=== PATIENT | male | born 1940 | race Caucasian/White ===

== ENCOUNTER 2016-10-20 08:15 | Emergency (ER) | payer OTHER ==
[~2016-10-20] VITALS: Ht 177.8 cm; Wt 71.0 kg
[2016-10-20 08:19] VITALS: BP 148/82
[2016-10-20] MEDS ORDERED: BUDE10.2 IH (08:47)
[2016-10-20] MEDS ORDERED: ASPI-515 PO (08:47)
[2016-10-20] MEDS ORDERED: SIMV40TA3 PO (08:47)
[2016-10-20] MEDS ORDERED: LOSA1TAB17 PO (08:47)
[2016-10-20] MEDS ORDERED: ALBU2.5V NEB (08:47)
[2016-10-20] MEDS ORDERED: OMEP-110 PO (08:47)
== END 2016-10-20 10:24 | disposition home or self-care (01) ==
LOC: ED 09:48
DX: S42.034A Nondisplaced fracture of lateral end of right clavicle, initial encounter for closed fracture (principal); E78.5 Hyperlipidemia, unspecified; Z87.891 Personal history of nicotine dependence; W10.8XXA Fall (on) (from) other stairs and steps, initial encounter; Y93.89 Activity, other specified; Y92.89 Other specified places as the place of occurrence of the external cause; Y99.8 Other external cause status
CPT/HCPCS: 71010; 99284

== ENCOUNTER 2018-04-09 08:24 | Inpatient (IN) | payer MEDICARE, OTHER ==
[~2018-04-09] VITALS: Ht 177.8 cm; Wt 74.0 kg
[~2018-04-09 08:24] MED LIST: ALBU2.5V NEB; ASPI-515 PO; BUDE10.2 IH; LOSA1TAB22 PO; OMEP-110 PO; SIMV40TA3 PO
--- NOTE | 2018-04-09 08:46 | NUR ---
77 Y/O MALE BIB AMBULANCE WITH C/O DYSPNEA. PER PT "I THINK MY CONCENTRATOR WASN'T WORKING LAST NIGHT. MY SATURATION WAS LOW 69%. I PUT MYSELF ON MY REGULAR OXYGEN TANK AT 4 LPM. THEN IT WENT UP TO 91%. I HAD SOME LOWER RIGHT BACK PAIN WHEN THEY GOT TO MY HOUSE, BUT IT'S NOT THERE ANYMORE. I'VE HAD A COUGH FOR 2 DAYS. SINCE THEN I REALLY HAVEN'T HAD AN APPETITE." PER EMS PT WAS GIVEN 1 DUO NEB AND 1 ALBUTEROL TX. 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 NO C/O N/V/D, TRAUMA, SYNCOPE, CP
[2018-04-09] MEDS ORDERED: HYDREA (08:55)
[2018-04-09] MEDS ORDERED: AMLODIPINE (08:55)
--- NOTE | 2018-04-09 09:06 | NUR ---
PT EDUCATED REGARDING URINAL AND NEEDING A UA SAMPLE. PT VERBALIZED UNDERSTANDING. URINAL BEDSIDE.
[2018-04-09 09:18] LABS: ALBUMIN 3.8 g/dL (3.4-5.0); ANION GAP 12 mmol/L (5-15); CALCIUM 8.7 mg/dL (8.5-10.1); CHLORIDE 105 mmol/L (98-107)
[2018-04-09 09:24] LABS: ALANINE AMINOTRANSFERASE 19 U/L (12-78); ALKALINE PHOSPHATASE 107 U/L (45-117); BILIRUBIN,TOTAL 0.6 mg/dL (0.2-1.0); CREATININE 1.32 mg/dL (0.7-1.3); TOTAL PROTEIN 7.5 g/dL (6.4-8.2); TROPONIN I < 0.015 ng/mL (0.000-0.045)
[2018-04-09 09:26] LABS: MEAN CORPUSCULAR HEMOGLOBIN 20.9 pg (27.5-34.5); MEAN CORPUSCULAR VOLUME 70.8 fL (81-97); MEAN PLATELET VOLUME 8.5 fL (7.4-10.4); PLATELET COUNT 846 x10^3/uL (130-400); RED BLOOD COUNT 5.79 x10^6/uL (4.38-5.82); RED CELL DISTRIBUTION WIDTH 18.5 % (9.4-14.8)
[2018-04-09 09:26] LABS: RAPID INFLUENZA A Negative (Negative); RAPID INFLUENZA B Negative (Negative)
[2018-04-09 09:27] LABS: MD YES; MEAN CORPUSCULAR HGB CONC 29.5 g/dL (33.2-36.2)
[2018-04-09 09:28] LABS: BASOS#(MANUAL) 0.15 x10^3/uL (0-0.1); BASOS% (MANUAL) 1 % (0-1); LYMPH#(MANUAL) 1.22 x10^3/uL (1-3.4); LYMPHS% (MANUAL) 8 % (22-44)
[2018-04-09 09:29] LABS: <PLATELET ESTIMATE> INCREASED; <PLT MORPHOLOGY> NORMAL PLT MORPH; MONOS#(MANUAL) 1.37 x10^3/uL (0.3-2.7); MONOS% (MANUAL) 9 % (2-9); SEG#(MANUAL) 12.46 x10^3/uL (1.8-6.8); SEGS% (MANUAL) 82 % (42-75)
[2018-04-09 09:30] LABS: ANISOCYTOSIS 1+; HYPOCHROMIA 1+; MICROCYTOSIS 1+
[2018-04-09] MEDS ORDERED: ALBUTEROL/IPRATROPIUM 2.5MG/0.5MG, 3 ML NPPB ONE (09:30)
--- NOTE | 2018-04-09 09:30 | NUR ---
PT RESTING ON GURNEY. PT STATES "I'M SO TIRED. THAT STUFF WEARS YOU OUT." NO ACUTE DISTRESS NOTED. MEDICATION ADMINISTERED PER EMAR. NO NEEDS REQUESTED AT THIS TIME.
[2018-04-09 09:31] LABS: OVALOCYTES 1+
[2018-04-09] MEDS ORDERED: ALBUTEROL/IPRATROPIUM 2.5MG/0.5MG, 3 ML ONE ×2 (09:32→14:28)
[2018-04-09] MEDS ORDERED: SODIUM CHLORIDE 0.9% 1,000ML IVBOLUS ONE ×2 (10:00→11:00)
[2018-04-09 10:13] LABS: MICROSCOPIC AUTO
[2018-04-09 10:16] LABS: CULTURE INDICATED? NO
--- NOTE | 2018-04-09 10:26 | NUR ---
PT RESTING ON GURNEY. NO ACUTE DISTRESS NOTED. PT STATES "I JUST DON'T FEEL GOOD." NO NEEDS REQUESTED AT THIS TIME. UA SENT TO LAB.
[2018-04-09] MEDS ORDERED: CEFTRIAXONE PMX 1GM/50ML 50 ML ONE (10:42)
--- NOTE | 2018-04-09 10:47 | NUR ---
PT BEING TRANSFERRED TO IMAGING
[2018-04-09] MEDS ORDERED: AZITHROMYCIN 500 MG in SODIUM CHLORIDE 0.9% 250 ML IV ONE (11:00)
[2018-04-09] MEDS ORDERED: CEFTRIAXONE PMX 1GM/50ML 50 ML IV ONE (11:00)
--- NOTE | 2018-04-09 11:03 | NUR ---
PT BACK FROM IMAGING.
--- NOTE | 2018-04-09 12:24 | NUR ---
PT RESTING ON GURNEY. PT VERBALIZES UNDERSTANDING REGARDING POC. NO ACUTE DISTRESS NOTED. NO NEEDS REQUESTED AT THIS TIME.
[2018-04-09] MEDS ORDERED: ONDANSETRON ODT 4 MG PO PRN (13:00)
[2018-04-09] MEDS ORDERED: LABETALOL 5MG/ML, 20ML IVPush PRN (13:00)
[2018-04-09] MEDS ORDERED: ONDANSETRON 2MG/ML, 2ML IVPush PRN (13:00)
[2018-04-09] MEDS: CEFTRIAXONE PMX 1GM/50ML 50 ML IV SCH (13:00)
[2018-04-09] MEDS ORDERED: POLYETHYLENE GLYCOL 17 GM PACKET PO PRN (13:00)
[2018-04-09 13:26] LABS: FREE T4 (FREE THYROXINE) 1.05 ng/dL (0.76-1.46)
--- NOTE | 2018-04-09 14:11 | NUR ---
PATIENT PROVIDED ICE WATER TO DRINK. VITALS UPDATED AND WNL. PT RESTING WITH NO COMPLAINTS. SIDE RAILS UP X2 AND CALL BUTTON WITHIN REACH.
[2018-04-09] MEDS: ALBUTEROL/IPRATROPIUM 2.5MG/0.5MG, 3 ML NPPB SCH ×2 (15:10→20:00)
--- NOTE | 2018-04-09 15:14 | NUR ---
PT RESTING ON GURNEY. PT GIVEN WATER. RT BEDSIDE. NO ACUTE DISTRESS NOTED. NO NEEDS REQUESTED AT THIS TIME.
--- NOTE | 2018-04-09 16:09 | NUR ---
REPORT TO YESICA JULIO. ALL QUESTIONS ANSWERED.
--- NOTE | 2018-04-09 16:37 | NUR ---
PT TRANSFERRED TO FLOOR. PT LEFT WITH ALL PERSONAL BELONGINGS.
[2018-04-09] MEDS: methylPREDNISolone SOD SUCC 125 MG/2 ML IVPush SCH ×2 (17:24→23:20)
[2018-04-09 17:37] VITALS: BP 113/54
[2018-04-09 19:34] VITALS: BP 110/61
[2018-04-09] MEDS: BUDESONIDE 0.5 MG/2 ML INHA INH SCH (21:00)
[2018-04-09] MEDS: DOXYCYCLINE 100MG TABLET PO SCH (21:09)
[2018-04-09] MEDS: FAMOTIDINE 20 MG/2 ML IVPush SCH (21:09)
[2018-04-10 00:19] LABS: CLOSTRIDIUM DIFFICILE ANTIGEN NEGATIVE; CLOSTRIDIUM DIFFICILE TOXIN NEGATIVE (Negative)
[2018-04-10 02:44] VITALS: BP 130/65
[2018-04-10] MEDS: methylPREDNISolone SOD SUCC 125 MG/2 ML IVPush SCH ×4 (05:24→23:22)
[2018-04-10 05:25] LABS: ALBUMIN 3.2 g/dL (3.4-5.0); ANION GAP 8 mmol/L (5-15); CALCIUM 7.8 mg/dL (8.5-10.1); CHLORIDE 109 mmol/L (98-107)
[2018-04-10 05:38] LABS: ALANINE AMINOTRANSFERASE 16 U/L (12-78); ALKALINE PHOSPHATASE 82 U/L (45-117); BILIRUBIN,TOTAL 0.3 mg/dL (0.2-1.0); CREATININE 1.08 mg/dL (0.7-1.3); THYROID STIMULATING HORMONE 0.444 mIU/L (0.358-3.740); TOTAL PROTEIN 6.2 g/dL (6.4-8.2)
[2018-04-10 05:39] LABS: MEAN CORPUSCULAR HEMOGLOBIN 20.8 pg (27.5-34.5); MEAN CORPUSCULAR VOLUME 70.5 fL (81-97); MEAN PLATELET VOLUME 8.8 fL (7.4-10.4); PLATELET COUNT 808 x10^3/uL (130-400); RED BLOOD COUNT 4.74 x10^6/uL (4.38-5.82); RED CELL DISTRIBUTION WIDTH 19.3 % (9.4-14.8)
[2018-04-10 06:11] LABS: MEAN CORPUSCULAR HGB CONC 29.5 g/dL (33.2-36.2)
[2018-04-10 06:24] LABS: BASOPHILS # (AUTO) 0.01 x10^3/uL (0-0.1); BASOPHILS % (AUTO) 0 % (0-1); EOSINOPHILS % (AUTO) 0 % (1-7); LYMPHOCYTES # (AUTO) 0.55 x10^3/uL (1-3.4); LYMPHOCYTES % (AUTO) 5 % (22-44); MD SCAN; MONOCYTES # (AUTO) 0.16 x10^3/uL (0.2-0.8); MONOCYTES % (AUTO) 2 % (2-9); NEUTROPHILS # (AUTO) 10.33 x10^3/uL (1.8-6.8); NEUTROPHILS % (AUTO) 94 % (42-75)
[2018-04-10] MEDS: ALBUTEROL/IPRATROPIUM 2.5MG/0.5MG, 3 ML NPPB SCH ×4 (07:00→20:20)
[2018-04-10 07:25] VITALS: BP 112/77
[2018-04-10] MEDS: BUDESONIDE 0.5 MG/2 ML INHA INH SCH ×2 (09:00→20:20)
[2018-04-10] MEDS: IRON SUCROSE COMPLEX 100MG/5ML IV SCH (09:22)
[2018-04-10] MEDS: SENNA/DOCUSATE TABLET PO SCH (09:22)
[2018-04-10] MEDS: DOXYCYCLINE 100MG TABLET PO SCH ×2 (09:22→21:01)
[2018-04-10] MEDS: FAMOTIDINE 20 MG/2 ML IVPush SCH ×2 (09:22→21:01)
[2018-04-10] MEDS: CEFTRIAXONE PMX 1GM/50ML 50 ML IV SCH (12:44)
[2018-04-10 13:42] VITALS: BP 124/66
[2018-04-10 18:28] VITALS: BP 135/62
[2018-04-11 00:55] VITALS: BP 124/63
[2018-04-11] MEDS: PSEUDOEPHEDRINE 30 MG TABLET PO PRN (04:49)
[2018-04-11] MEDS: methylPREDNISolone SOD SUCC 125 MG/2 ML IVPush SCH (04:54)
[2018-04-11 06:20] LABS: MEAN CORPUSCULAR HEMOGLOBIN 21.4 pg (27.5-34.5); MEAN CORPUSCULAR HGB CONC 30.4 g/dL (33.2-36.2); MEAN CORPUSCULAR VOLUME 70.3 fL (81-97); MEAN PLATELET VOLUME 9.1 fL (7.4-10.4); PLATELET COUNT 947 x10^3/uL (130-400); RED BLOOD COUNT 5.15 x10^6/uL (4.38-5.82); RED CELL DISTRIBUTION WIDTH 19.1 % (9.4-14.8)
[2018-04-11 06:28] LABS: ALANINE AMINOTRANSFERASE 20 U/L (12-78); ALBUMIN 3.6 g/dL (3.4-5.0); ANION GAP 9 mmol/L (5-15); CHLORIDE 110 mmol/L (98-107)
[2018-04-11 06:30] LABS: ALKALINE PHOSPHATASE 91 U/L (45-117); BILIRUBIN,TOTAL 0.2 mg/dL (0.2-1.0); CREATININE 1.22 mg/dL (0.7-1.3)
[2018-04-11 06:54] LABS: BASOPHILS % (AUTO) 0 % (0-1); EOSINOPHILS # (AUTO) 0.59 x10^3/uL (0-0.4); EOSINOPHILS % (AUTO) 2 % (1-7); LYMPHOCYTES # (AUTO) 0.61 x10^3/uL (1-3.4); LYMPHOCYTES % (AUTO) 2 % (22-44); MD SCAN; MONOCYTES # (AUTO) 0.49 x10^3/uL (0.2-0.8); MONOCYTES % (AUTO) 2 % (2-9); NEUTROPHILS # (AUTO) 30.21 x10^3/uL (1.8-6.8); NEUTROPHILS % (AUTO) 95 % (42-75)
[2018-04-11] MEDS: ALBUTEROL/IPRATROPIUM 2.5MG/0.5MG, 3 ML NPPB SCH ×3 (07:00→19:11)
[2018-04-11] MEDS: SENNA/DOCUSATE TABLET PO SCH (07:21)
[2018-04-11 08:05] VITALS: BP 147/67
[2018-04-11] MEDS: FAMOTIDINE 20 MG/2 ML IVPush SCH ×2 (08:38→20:20)
[2018-04-11] MEDS: IRON SUCROSE COMPLEX 100MG/5ML IV SCH (08:38)
[2018-04-11] MEDS: DOXYCYCLINE 100MG TABLET PO SCH ×2 (08:38→20:21)
[2018-04-11] MEDS: BUDESONIDE 0.5 MG/2 ML INHA INH SCH ×2 (09:00→19:11)
[2018-04-11] MEDS: CEFTRIAXONE PMX 1GM/50ML 50 ML IV SCH (13:42)
[2018-04-11 14:00] VITALS: BP 147/63
[2018-04-11] MEDS: GUAIFENESIN 200 MG TABLET PO SCH ×3 (14:00→20:21)
[2018-04-11 19:10] VITALS: BP 133/70
[2018-04-12 01:33] VITALS: BP 113/62
[2018-04-12] MEDS: GUAIFENESIN 200 MG TABLET PO SCH ×4 (05:32→20:21)
[2018-04-12] MEDS: ALBUTEROL/IPRATROPIUM 2.5MG/0.5MG, 3 ML NPPB SCH ×2 (06:34→20:03)
[2018-04-12] MEDS: BUDESONIDE 0.5 MG/2 ML INHA INH SCH ×2 (06:34→20:03)
[2018-04-12 07:05] VITALS: BP 137/77
[2018-04-12] MEDS: SENNA/DOCUSATE TABLET PO SCH (07:13)
[2018-04-12] MEDS: FAMOTIDINE 20 MG/2 ML IVPush SCH ×2 (07:47→20:21)
[2018-04-12] MEDS: IRON SUCROSE COMPLEX 100MG/5ML IV SCH (07:48)
[2018-04-12] MEDS: DOXYCYCLINE 100MG TABLET PO SCH ×2 (07:48→20:21)
[2018-04-12] MEDS: PSEUDOEPHEDRINE 30 MG TABLET PO PRN (07:49)
[2018-04-12 08:27] LABS: MEAN CORPUSCULAR HEMOGLOBIN 21.3 pg (27.5-34.5); MEAN CORPUSCULAR HGB CONC 30.1 g/dL (33.2-36.2); MEAN CORPUSCULAR VOLUME 70.7 fL (81-97); RED BLOOD COUNT 5.24 x10^6/uL (4.38-5.82); RED CELL DISTRIBUTION WIDTH 19.5 % (9.4-14.8)
[2018-04-12 08:36] LABS: ALBUMIN 3.5 g/dL (3.4-5.0); ANION GAP 7 mmol/L (5-15); CALCIUM 8.6 mg/dL (8.5-10.1); CHLORIDE 110 mmol/L (98-107); CREATININE 1.07 mg/dL (0.7-1.3)
[2018-04-12 09:00] LABS: MEAN PLATELET VOLUME 8.4 fL (7.4-10.4)
[2018-04-12] MEDS ORDERED: POTASSIUM CHLORIDE 20 MEQ TAB.ER.PRT PO ONE ×2 (09:00→11:30)
[2018-04-12 09:03] LABS: PLATELET COUNT 1076 x10^3/uL (130-400)
[2018-04-12 09:07] LABS: BASOPHILS % (AUTO) 0 % (0-1); EOSINOPHILS # (AUTO) 0.01 x10^3/uL (0-0.4); EOSINOPHILS % (AUTO) 0 % (1-7); LYMPHOCYTES # (AUTO) 0.55 x10^3/uL (1-3.4); LYMPHOCYTES % (AUTO) 2 % (22-44); MD SCAN; MONOCYTES # (AUTO) 0.97 x10^3/uL (0.2-0.8); MONOCYTES % (AUTO) 3 % (2-9); NEUTROPHILS # (AUTO) 29.41 x10^3/uL (1.8-6.8); NEUTROPHILS % (AUTO) 95 % (42-75)
[2018-04-12] MEDS ORDERED: OMNIPAQUE 350 MG/ML, 75ML BOTTLE ONE (09:24)
[2018-04-12] MEDS: ASPIRIN 81 MG TABLET CHEW PO SCH (09:38)
[2018-04-12] MEDS: GABAPENTIN 100 MG CAPSULE PO SCH ×3 (10:37→20:21)
[2018-04-12 13:36] VITALS: BP 163/82
[2018-04-12] MEDS: AMPICILLIN/SULBACTAM 3 GM in SODIUM CHLORIDE 0.9% 100 ML IV SCH ×2 (13:45→20:21)
[2018-04-12 20:24] VITALS: BP 145/65
[2018-04-13] MEDS: AMPICILLIN/SULBACTAM 3 GM in SODIUM CHLORIDE 0.9% 100 ML IV SCH ×4 (02:26→19:59)
[2018-04-13 03:29] VITALS: BP 157/72
[2018-04-13] MEDS: ALBUTEROL/IPRATROPIUM 2.5MG/0.5MG, 3 ML NPPB SCH ×4 (03:40→20:10)
[2018-04-13] MEDS: PSEUDOEPHEDRINE 30 MG TABLET PO PRN (04:31)
[2018-04-13] MEDS: GUAIFENESIN 200 MG TABLET PO SCH ×4 (04:32→19:58)
[2018-04-13] MEDS ORDERED: morphine SULFATE 10 MG/ML, 1ML IVPush PRN (05:00)
[2018-04-13 08:15] VITALS: BP 158/78
[2018-04-13 08:27] LABS: MEAN CORPUSCULAR HEMOGLOBIN 21.4 pg (27.5-34.5); MEAN CORPUSCULAR HGB CONC 30.4 g/dL (33.2-36.2); MEAN CORPUSCULAR VOLUME 70.3 fL (81-97); MEAN PLATELET VOLUME 8.3 fL (7.4-10.4); RED BLOOD COUNT 5.45 x10^6/uL (4.38-5.82); RED CELL DISTRIBUTION WIDTH 19.9 % (9.4-14.8)
[2018-04-13 08:31] LABS: ALBUMIN 3.3 g/dL (3.4-5.0); ANION GAP 6 mmol/L (5-15); CALCIUM 8.9 mg/dL (8.5-10.1); CHLORIDE 107 mmol/L (98-107); CREATININE 1.08 mg/dL (0.7-1.3)
[2018-04-13] MEDS: IRON SUCROSE COMPLEX 100MG/5ML IV SCH (08:38)
[2018-04-13] MEDS: FAMOTIDINE 20 MG/2 ML IVPush SCH (08:39)
[2018-04-13] MEDS: ASPIRIN 81 MG TABLET CHEW PO SCH (08:39)
[2018-04-13] MEDS: DOXYCYCLINE 100MG TABLET PO SCH ×2 (08:39→19:58)
[2018-04-13] MEDS: SENNA/DOCUSATE TABLET PO SCH (08:39)
[2018-04-13] MEDS: GABAPENTIN 100 MG CAPSULE PO SCH ×3 (08:39→19:59)
[2018-04-13 08:48] LABS: PLATELET COUNT 1066 x10^3/uL (130-400)
[2018-04-13] MEDS: BUDESONIDE 0.5 MG/2 ML INHA INH SCH ×3 (08:59→20:15)
[2018-04-13] MEDS ORDERED: FUROSEMIDE 40 MG/4 ML IV ONE ×2 (09:00)
[2018-04-13] MEDS ORDERED: ASPIRIN 81 MG TABLET CHEW PO SCH (09:00)
[2018-04-13] MEDS: ENOXAPARIN 40 MG/0.4 ML SQ SCH (09:04)
[2018-04-13] MEDS: LORazepam 0.5MG TABLET PO PRN ×2 (09:04→19:58)
[2018-04-13 09:10] LABS: BASOPHILS % (AUTO) 0 % (0-1); EOSINOPHILS # (AUTO) 0.01 x10^3/uL (0-0.4); EOSINOPHILS % (AUTO) 0 % (1-7); LYMPHOCYTES % (AUTO) 3 % (22-44); MD MORPH REVIEW ONLY; MONOCYTES # (AUTO) 0.52 x10^3/uL (0.2-0.8); MONOCYTES % (AUTO) 2 % (2-9); NEUTROPHILS # (AUTO) 21.28 x10^3/uL (1.8-6.8); NEUTROPHILS % (AUTO) 95 % (42-75)
[2018-04-13 09:13] LABS: ANISOCYTOSIS 2+; MICROCYTOSIS 1+; OVALOCYTES 1+
[2018-04-13 09:14] LABS: <PLATELET ESTIMATE> INCREASED; HYPOCHROMIA 1+; POLYCHROMASIA 1+
[2018-04-13 09:15] LABS: <PLT MORPHOLOGY> NORMAL PLT MORPH
[2018-04-13] MEDS: LIDODERM 5% PATCH TD SCH (13:43)
[2018-04-13 14:00] LABS: MICROSCOPIC AUTO
[2018-04-13 16:35] VITALS: BP 120/61
[2018-04-13 19:54] VITALS: BP 130/65
[2018-04-14 00:50] VITALS: BP 128/64
[2018-04-14] MEDS: AMPICILLIN/SULBACTAM 3 GM in SODIUM CHLORIDE 0.9% 100 ML IV SCH ×4 (01:47→20:26)
[2018-04-14] MEDS: ALBUTEROL/IPRATROPIUM 2.5MG/0.5MG, 3 ML NPPB SCH ×4 (03:30→20:01)
[2018-04-14] MEDS: GUAIFENESIN 200 MG TABLET PO SCH ×4 (05:21→20:26)
[2018-04-14 06:56] LABS: MEAN CORPUSCULAR HEMOGLOBIN 21.7 pg (27.5-34.5); MEAN CORPUSCULAR HGB CONC 30.9 g/dL (33.2-36.2); MEAN CORPUSCULAR VOLUME 70.3 fL (81-97); MEAN PLATELET VOLUME 8.4 fL (7.4-10.4); PLATELET COUNT 943 x10^3/uL (130-400); RED BLOOD COUNT 4.99 x10^6/uL (4.38-5.82)
[2018-04-14 07:03] LABS: ALBUMIN 2.7 g/dL (3.4-5.0); ANION GAP 6 mmol/L (5-15); CALCIUM 8.2 mg/dL (8.5-10.1); CHLORIDE 106 mmol/L (98-107)
[2018-04-14 07:07] LABS: ALANINE AMINOTRANSFERASE 16 U/L (12-78); ALKALINE PHOSPHATASE 87 U/L (45-117); BILIRUBIN,TOTAL 0.7 mg/dL (0.2-1.0); CREATININE 1.31 mg/dL (0.7-1.3)
[2018-04-14] MEDS: BUDESONIDE 0.5 MG/2 ML INHA INH SCH (07:25)
[2018-04-14] MEDS: DOXYCYCLINE 100MG TABLET PO SCH ×2 (08:20→20:26)
[2018-04-14] MEDS: GABAPENTIN 100 MG CAPSULE PO SCH ×3 (08:20→20:26)
[2018-04-14] MEDS: ASPIRIN 81 MG TABLET CHEW PO SCH (08:20)
[2018-04-14] MEDS: IRON SUCROSE COMPLEX 100MG/5ML IV SCH (08:20)
[2018-04-14] MEDS: SENNA/DOCUSATE TABLET PO SCH (08:20)
[2018-04-14] MEDS: ENOXAPARIN 40 MG/0.4 ML SQ SCH (08:22)
[2018-04-14 08:28] VITALS: BP 158/76
[2018-04-14 08:30] LABS: BASOPHILS % (AUTO) 0 % (0-1); EOSINOPHILS % (AUTO) 0 % (1-7); LYMPHOCYTES % (AUTO) 4 % (22-44); MD SCAN; MONOCYTES # (AUTO) 0.57 x10^3/uL (0.2-0.8); MONOCYTES % (AUTO) 4 % (2-9); NEUTROPHILS # (AUTO) 13.38 x10^3/uL (1.8-6.8); NEUTROPHILS % (AUTO) 92 % (42-75)
[2018-04-14 12:23] VITALS: BP 149/83
[2018-04-14] MEDS: LIDODERM 5% PATCH TD SCH (13:42)
[2018-04-14 19:43] VITALS: BP 149/83
[2018-04-15 01:26] VITALS: BP 128/70
[2018-04-15] MEDS: AMPICILLIN/SULBACTAM 3 GM in SODIUM CHLORIDE 0.9% 100 ML IV SCH ×4 (02:41→21:08)
[2018-04-15] MEDS: ALBUTEROL/IPRATROPIUM 2.5MG/0.5MG, 3 ML NPPB SCH ×4 (03:00→20:40)
[2018-04-15 05:18] LABS: MEAN CORPUSCULAR HEMOGLOBIN 21.7 pg (27.5-34.5); MEAN CORPUSCULAR HGB CONC 30.8 g/dL (33.2-36.2); MEAN CORPUSCULAR VOLUME 70.5 fL (81-97); MEAN PLATELET VOLUME 8.8 fL (7.4-10.4); RED CELL DISTRIBUTION WIDTH 20.2 % (9.4-14.8)
[2018-04-15 05:26] LABS: CHLORIDE 106 mmol/L (98-107)
[2018-04-15 05:34] LABS: ALANINE AMINOTRANSFERASE 16 U/L (12-78); ALBUMIN 2.8 g/dL (3.4-5.0); ALKALINE PHOSPHATASE 83 U/L (45-117); ANION GAP 7 mmol/L (5-15); BILIRUBIN,TOTAL 0.3 mg/dL (0.2-1.0); CALCIUM 8.8 mg/dL (8.5-10.1); CREATININE 1.07 mg/dL (0.7-1.3); TOTAL PROTEIN 6.4 g/dL (6.4-8.2)
[2018-04-15 05:42] LABS: BASOPHILS % (AUTO) 0 % (0-1); EOSINOPHILS # (AUTO) 0.08 x10^3/uL (0-0.4); EOSINOPHILS % (AUTO) 1 % (1-7); LYMPHOCYTES % (AUTO) 6 % (22-44); MD SCAN; MONOCYTES # (AUTO) 0.95 x10^3/uL (0.2-0.8); MONOCYTES % (AUTO) 6 % (2-9); NEUTROPHILS % (AUTO) 88 % (42-75)
[2018-04-15 05:44] LABS: PLATELET COUNT 1117 x10^3/uL (130-400)
[2018-04-15] MEDS: GUAIFENESIN 200 MG TABLET PO SCH ×3 (06:33→18:47)
[2018-04-15 08:00] VITALS: BP 134/74
[2018-04-15] MEDS: BUDESONIDE 0.5 MG/2 ML INHA INH SCH ×2 (08:05→20:40)
[2018-04-15] MEDS: SENNA/DOCUSATE TABLET PO SCH (09:00)
[2018-04-15] MEDS: ASPIRIN 81 MG TABLET CHEW PO SCH (10:01)
[2018-04-15] MEDS: DOXYCYCLINE 100MG TABLET PO SCH ×2 (10:01→21:07)
[2018-04-15] MEDS: GABAPENTIN 100 MG CAPSULE PO SCH ×2 (10:02→18:47)
[2018-04-15] MEDS: ENOXAPARIN 40 MG/0.4 ML SQ SCH (10:02)
[2018-04-15 14:00] VITALS: BP 125/68
[2018-04-15] MEDS: LIDODERM 5% PATCH TD SCH (14:08)
[2018-04-15 16:10] VITALS: BP 125/68
[2018-04-15 19:34] VITALS: BP 131/67
[2018-04-16] MEDS: ALBUTEROL/IPRATROPIUM 2.5MG/0.5MG, 3 ML NPPB SCH ×2 (02:14→08:00)
[2018-04-16 02:19] VITALS: BP 133/69
[2018-04-16] MEDS: AMPICILLIN/SULBACTAM 3 GM in SODIUM CHLORIDE 0.9% 100 ML IV SCH ×2 (03:08→08:28)
[2018-04-16] MEDS: GUAIFENESIN 200 MG TABLET PO SCH ×2 (03:08→05:44)
[2018-04-16] MEDS: GABAPENTIN 100 MG CAPSULE PO SCH ×2 (03:08→08:29)
[2018-04-16 05:58] LABS: MEAN CORPUSCULAR HEMOGLOBIN 21.5 pg (27.5-34.5); MEAN CORPUSCULAR HGB CONC 30.6 g/dL (33.2-36.2); MEAN CORPUSCULAR VOLUME 70.4 fL (81-97); MEAN PLATELET VOLUME 8.7 fL (7.4-10.4); RED CELL DISTRIBUTION WIDTH 20.2 % (9.4-14.8)
[2018-04-16 06:05] LABS: PLATELET COUNT 1194 x10^3/uL (130-400)
[2018-04-16 06:18] LABS: BASOPHILS % (AUTO) 0 % (0-1); CHLORIDE 109 mmol/L (98-107); EOSINOPHILS # (AUTO) 0.02 x10^3/uL (0-0.4); EOSINOPHILS % (AUTO) 0 % (1-7); LYMPHOCYTES # (AUTO) 0.81 x10^3/uL (1-3.4); LYMPHOCYTES % (AUTO) 6 % (22-44); MD SCAN; MONOCYTES # (AUTO) 0.81 x10^3/uL (0.2-0.8); MONOCYTES % (AUTO) 6 % (2-9); NEUTROPHILS # (AUTO) 12.26 x10^3/uL (1.8-6.8); NEUTROPHILS % (AUTO) 88 % (42-75)
[2018-04-16 06:26] LABS: ALANINE AMINOTRANSFERASE 14 U/L (12-78); ALBUMIN 2.4 g/dL (3.4-5.0); ALKALINE PHOSPHATASE 74 U/L (45-117); ANION GAP 5 mmol/L (5-15); BILIRUBIN,TOTAL 0.8 mg/dL (0.2-1.0); CALCIUM 8.1 mg/dL (8.5-10.1); TOTAL PROTEIN 5.8 g/dL (6.4-8.2)
[2018-04-16 08:00] VITALS: BP 135/66
[2018-04-16] MEDS: BUDESONIDE 0.5 MG/2 ML INHA INH SCH (08:00)
[2018-04-16] MEDS: ASPIRIN 81 MG TABLET CHEW PO SCH (08:28)
[2018-04-16] MEDS: DOXYCYCLINE 100MG TABLET PO SCH (08:28)
[2018-04-16] MEDS: SENNA/DOCUSATE TABLET PO SCH (08:29)
[2018-04-16] MEDS: ENOXAPARIN 40 MG/0.4 ML SQ SCH (08:29)
[2018-04-16] MEDS ORDERED: ASPI-515 PO (09:32)
[2018-04-16] MEDS ORDERED: GABA-826 PO (09:32)
[2018-04-16] MEDS ORDERED: GUAI200T3 PO (09:32)
[2018-04-16] MEDS ORDERED: PRED10TA PO (09:32)
[2018-04-16] MEDS ORDERED: AMOX1TAB64 PO (09:35)
[2018-04-16] MEDS ORDERED: DOXY100T PO (09:35)
== END 2018-04-16 11:47 | disposition hospice, home (50) | DRG 871 ==
LOC: ED 09:58 → EDIP 11:14 → 4WST 16:33
PROVIDERS: ADMIT Hospitalist; ATTEND Hospitalist
DX: A41.9 Sepsis, unspecified organism (principal); J96.01 Acute respiratory failure with hypoxia; J15.9 Unspecified bacterial pneumonia; J44.0 Chronic obstructive pulmonary disease with (acute) lower respiratory infection; N17.9 Acute kidney failure, unspecified; E87.2 Acidosis; J44.1 Chronic obstructive pulmonary disease with (acute) exacerbation; Z66 Do not resuscitate; D50.9 Iron deficiency anemia, unspecified; E78.5 Hyperlipidemia, unspecified; I10 Essential (primary) hypertension; I27.20 Pulmonary hypertension, unspecified; K57.30 Diverticulosis of large intestine without perforation or abscess without bleeding; K86.9 Disease of pancreas, unspecified; R65.20 Severe sepsis without septic shock; Z80.1 Family history of malignant neoplasm of trachea, bronchus and lung; Z87.891 Personal history of nicotine dependence; Z99.81 Dependence on supplemental oxygen
CPT/HCPCS: 36415; 36600; 71045; 71260; 74177; 74230; 80048; 80053; 81001; 82040; 82607; 82728; 82803; 83540; 83550; 83605; 83690; 83735; 84100; 84145; 84439; 84443; 84484; 85025; 86301; 87040; 87070; 87205; 87324; 87400; 93005; 93306; 93970; 94640; 94667; 94668; 96361; 96365; 96366; 96367; G0378; J0295; J0456; J0696; J1650; J1756; J1940; J2405; J7620; J7626; Q9967; J2270; J2930; J3490; J7030; J7050; J7512